=== PATIENT | female | born 1945 | race Caucasian/White ===

== ENCOUNTER → 2017-05-30 | Outpatient (CLI) | payer OTHER | LOC: BMCIMAGING 10:43 | PROVIDERS: ATTEND Internal Medicine | DX: Z13.820 Encounter for screening for osteoporosis (principal); M85.89 Other specified disorders of bone density and structure, multiple sites ==

== ENCOUNTER 2018-06-25 13:43 | Emergency (ER) | payer OTHER ==
[2018-06-25 13:49] VITALS: BP 166/109
[2018-06-25] MEDS ORDERED: OXYMETAZOLINE 30 ML NASAL SPRAY ONE (13:55)
[2018-06-25] MEDS ORDERED: SILVER NITRATE APPLICATOR 1 APPL TP ONE (13:56)
--- NOTE | 2018-06-25 14:20 | EDPHY ---
HPI/HX/ROS/PE/MDM Narrative: CLINICAL IMPRESSION: Anterior epistaxis left nares ASSESSMENT/PLAN: Patient is a 73-year-old female with a significant history of hypertension and hypothyroidism who presents with bleeding from the left nares. Patient is afebrile and nontoxic-appearing, she is in no acute distress on arrival. Physical examination revealed very mild oozing from the anterior left septum. There was no obvious hematoma, perforation, foreign body, mass or evidence of a posterior epistaxis. The area was prepped with Afrin and anesthetized with lidocaine and epinephrine as mentioned in the procedure note, hemostasis ultimately achieved with silver nitrate. The patient was observed for a period of time with no recurrent bleeding or evidence of posterior epistaxis. History and physical examination is consistent with anterior epistaxis left nares. On repeat examination the patient is well appearing, there is no active bleeding and no blood noted in the posterior pharynx. Strict return precautions were discussed- patient will return for recurrent bleeding, dizziness, headache, chest pain, shortness of breath or for any other concerning symptom. The patient and both verbalized understanding and they were in agreement with this plan. Case and plan of care discussed with Dr. Estrada. DIFFERENTIAL DX: Anterior epistaxis, posterior epistaxis, septal perforation, septal hematoma ED PROCEDURES: Procedure: Epistaxis control. After verbal consent was obtained, the patient was anesthetized with Afrin and topical let. The anterior epistaxis was identified. The patient was treated with silver nitrate. Following the procedure the patient was re-examined and the bleeding was well controlled. The patient tolerated the procedure well. The procedure was performed by myself. ED COURSE: CHIEF COMPLAINT: Epistaxis left nares HPI: Patient is a 73-year-old female with a significant history of hypertension and hypothyroidism who presents to the emergency department with complaints of bleeding from her left naris. Patient reports approximately 1 hr prior to arrival she had sudden, spontaneous bleeding from the left nares. The patient applied pressure however was unable to get the bleeding under control and subsequently proceeded to the emergency department. Patient denies any trauma, she denies any headache, dizziness, nausea, vomiting, chest pain or shortness of breath. She does endorse a history of a very dry nose and issues with epistaxis from this same location in the past. Patient has required cauterization on several occasions, denies ever requiring nasal packing. Patient denies any other complaint or concern. PAST MEDICAL HISTORY: Hypertension, hypothyroidism Pertinent Past Surgical History: Denies Family History: Not contributory Social History: Denies smoking, denies alcohol and denies illicit drug use ROS: A full 10 point review of systems was negative except for those mentioned in HPI. PHYSICAL EXAM: General Appearance: Alert, oriented, appropriate, cooperative, NAD, well hydrated, non-toxic appearing, VSS, no hypoxia. HENT: TMs are clear bilaterally no perforation or FB, no injection, no evidence of serous or mucopurulent otitis. Right nares clear, mucosa is pink. Left nares reveals a very small ooze on the anterior septum. There is no evidence of septal perforation or septal hematoma. Oropharynx clear is no erythema or exudates, no tonsillar hypertrophy or asymmetry. The posterior pharynx is clear there is no blood noted in the posterior pharynx. Dentition without abnormality. Eyes: PERRLA, no acute vision change, nystagmus, swelling, discharge, pain or photosensitivity. Conjunctiva pink, no pallor or injection Neck: Supple, nontender, no lymphadenopathy, no midline pain, FROM, no meningismus. Respiratory: There are no retractions, lungs are clear to auscultation. Cardiac: Regular rate and rhythm, no murmurs or gallops. Gastrointestinal: Abdomen is soft, nontender, bowel sounds normal, no masses/ hernia, no rigidity, guarding or focal peritoneal findings. Skin: Warm, dry, no rashes, no nodules on palpation. MEDICAL DECISION MAKING: Patient was seen independently. Secondary supervising physician at time of evaluation was Sean. Diagnosis: Left anterior epistaxis. New, requires workup Summary: See Assessment and Plan for summary of ED visit Clinical lab tests: Not applicable. Independent visualization of images, tracing, or specimens: Not applicable. Decision to obtain medical records or history from someone other than the patient: Yes, Review / Summarize previous medical records: No Discussed patient with another provider: Yes, Dr. Estrada Patient Progress: Stable, discharged home. - Data Points Medications Given: Discontinued Medications Tetracaine/Epinephrine/Lidocaine (Let Gel Topical) 1 ea TP EDNOW ONE Stop: 06/25/18 14:38 Last Admin: 06/25/18 14:43 Dose: 1 ea General Initial Vital Signs: Initial Vital Signs Temperature (C) 36.4 C 06/25/18 13:47 Heart Rate 90 06/25/18 13:47 Respiratory Rate 18 06/25/18 13:47 Blood Pressure 166/109 H 06/25/18 13:47 O2 Sat (%) 97 06/25/18 13:47 O2 Delivery Mode Room Air Allergies/Adverse Reactions: gluten Allergy (Verified 06/25/18 13:46) Home Medications: Medication Instructions Recorded Levothyroxine 06/03/15 Losartan Potassium 06/03/15 [place]-3 06/25/18 Departure - Departure Disposition: Home, Routine, Self-Care Clinical Impression: Anterior epistaxis Condition: Good Instructions: Nosebleed (ED) Additional Instructions: DISCHARGE INSTRUCTIONS FROM YOUR DOCTOR Thank you for visiting our emergency department today. Please keep in mind that discharge from the emergency department does not mean that there is nothing wrong - it simply means that we have not identified an emergency condition that requires further evaluation or treatment in the hospital. You should always plan to follow up with primary care for re-evaluation of your condition in the next 2-3 days. If you have been referred to a specialist, please call as soon as possible (today or tomorrow) to schedule your follow up appointment at the appropriate time. Avoid strenuous activity like heavy lifting, pushing, pulling, carrying, bearing down for the next 24 hours. Avoid nose blowing for 12-24 hours. Once the area is healed, consider using a saline nasal spray daily (ie: [place] or [place]). Do not use Afrin daily. You may use Afrin as directed with the nasal clamp for a recurrent nose bleed. Consider running a cool mist humidifier in your home. As discussed if the nose re-bleeds, apply pressure for timed 20 minutes and sit upright. Drink a glass of cold water. Schedule a follow-up appointment with your primary care provider tomorrow. Return for recurrent bleeding, development of fever, severe headache, dizziness or lightheadedness, fainting, chest pain, shortness of breath, severe headache, discolored drainage from the nose, other signs of bleeding like blood in the urine, unusual bruising, blood in the stool, vomiting blood, facial pain, difficulty breathing or swallowing, numbness, tingling, weakness, or for any other new, worrisome or worsening symptoms. People present with illnesses and injuries in different ways, and it is always possible that we have missed something. You may always return for re-evaluation if symptoms worsen or if they are not improving or if you develop new/different symptoms. Again, thank you for choosing our emergency department. We hope that you feel better. Referrals: Marques Tang MD [Primary Care Provider] - 1-2 days without fail
[2018-06-25] MEDS ORDERED: LET GEL TOPICAL 1 EA SYR TP ONE (14:37)
== END 2018-06-25 15:10 | disposition home or self-care (01) ==
PROC: 3E09XGC Introduction of Other Therapeutic Substance into Nose, External Approach (ICD-10-PCS; principal; 2018-06-25)
DX: R04.0 Epistaxis (principal); I10 Essential (primary) hypertension; E03.9 Hypothyroidism, unspecified